=== PATIENT | male | born 1990 | race Two or more races ===

== ENCOUNTER 2016-10-16 18:09 | Emergency (ER) | payer OTHER ==
[~2016-10-16] VITALS: Ht 180.3 cm; Wt 92.9 kg
[2016-10-16] MEDS ORDERED: SODIUM CHLORIDE 0.9% 1,000ML IVBOLUS ONE (18:30)
[2016-10-16] MEDS ORDERED: SODIUM CHLORIDE FLUSH 10ML SYR IVF ONE (18:30)
[2016-10-16] MEDS ORDERED: ONDANSETRON 2MG/ML, 2ML IVPush ONE (18:30)
[2016-10-16 18:45] LABS: BLOOD UREA NITROGEN 16 mg/dL (7-18)
[2016-10-16] MEDS ORDERED: OMEP20TA62 PO (19:00)
[2016-10-16] MEDS ORDERED: ONDANSETRON 2MG/ML, 2ML ONE (19:00)
[2016-10-16] MEDS ORDERED: OMNIPAQUE 350 MG/ML, 100ML BOTTLE ONE (19:30)
[2016-10-16 21:15] VITALS: BP 118/77
== END 2016-10-16 21:26 | disposition home or self-care (01) ==
LOC: ED 21:15
DX: K57.30 Diverticulosis of large intestine without perforation or abscess without bleeding (principal); K21.9 Gastro-esophageal reflux disease without esophagitis
CPT/HCPCS: 36415; 74177; 80048; 81003; 82040; 83690; 85025; 96361; 96374; 99285; J2405; J7030; Q9967